=== PATIENT | male | born 1980 | race Caucasian/White ===

== ENCOUNTER 2017-04-06 21:08 | Emergency (ER) | payer BC, OTHER ==
[2017-04-06 21:21] VITALS: TEMP 98.6
[2017-04-06] MEDS ORDERED: NS 1,000 ML IV ONE (21:32)
[2017-04-06] MEDS ORDERED: HYDROmorphONE/DILAUDID 1 MG/ML SYR IVP ONE (21:32)
[2017-04-06] MEDS ORDERED: fentaNYL 100 MCG/2 ML INJ IVP ONE (21:34)
--- NOTE | 2017-04-06 22:15 | EDPHY ---
H & P Time Seen by Provider: 04/06/17 21:39 HPI/ROS: CHIEF COMPLAINT: Left wrist pain HISTORY OF PRESENT ILLNESS: 36-year-old [id number] male complaining of acute left wrist pain after he fell on outstretched left hand while skateboarding. Complaining deformity. No paresthesia or sensory deficit. Reproducible pain with palpation range of motion. Course shortly prior to arrival. PRIMARY CARE PROVIDER: REVIEW OF SYSTEMS: A ten point review of systems was performed and is negative with the exception of the items mentioned in the HPI PHYSICAL EXAM (Prior to examination, patient consented to physical exam, hands were washed and my usual and customary physical exam procedures followed) 1) GENERAL: Well-developed, well-nourished, alert and oriented. Appears to be in no acute distress. 2) HEAD: Normocephalic 3) HEENT: Pupils equal, round, reactive to light bilaterally. 4) LUNGS: Breathing comfortably. 5) MUSCULOSKELETAL: Soft compartments. Soft tissue swelling and dorsal deformity left wrist. Normal coloration. 6) SKIN: intact 7) VASCULAR: pulses and cap refill present are brisk 8) NEUROLOGIC: Radial, ulnar, median nerve function intact with no deficits appreciated on exam DIFFERENTIAL DIAGNOSIS: in no particular order including but not limited to fracture, sprain, compartment syndrome Procedure: Fracture reduction Indication: Fracture of the distal radius Indications, risks and benefits discussed with patient and consent obtained. A hematoma block of 0.5% bupivicaine placed by myself. Traction and countertraction applied achieving a visible and palpable reduction. The area was splinted with Ortho Glass sugar-tong splint . After application of the splint I returned and re-examined the patient. The splint was adequately immobilizing the joint and distal to the splint the patient's circulation and sensation were intact. Patient shows no signs of compartment syndrome. Was given orthopedic precautions. Smoking Status: Current every day smoker Constitutional: Initial Vital Signs Temperature (C) 37 C 04/06/17 21:18 Heart Rate 61 04/06/17 21:18 Respiratory Rate 20 04/06/17 21:18 Blood Pressure 145/80 H 04/06/17 21:18 O2 Sat (%) 96 04/06/17 21:18 O2 Delivery Mode Nasal Cannula O2 (L/minute) 1 Allergies/Adverse Reactions: No Known Allergies Allergy (Unverified 04/06/17 21:18) Home Medications: Medication Instructions Recorded Hydrocodone/APAP 5/325 [[place] 1 tab PO Q6 PRN #10 tab 04/06/17 5/325 (RX)] MDM/Departure - MDM Imaging Results: Imaging Impressions Wrist X-Ray 04/06/17 21:22 Impression: Displaced transverse distal left radial fracture, with dorsal subluxation of the carpus. Wrist X-Ray 04/06/17 22:51 Impression: Interval partial reduction in distal left radial displaced fracture and dorsal carpal subluxation. Images reviewed by myself Medications Given: Discontinued Medications Diphenhydramine HCl (Benadryl Injection) 25 mg IVP EDNOW ONE Stop: 04/06/17 21:59 Last Admin: 04/06/17 22:00 Dose: 25 mg Fentanyl (Sublimaze) 100 mcg IVP EDNOW ONE Stop: 04/06/17 21:35 Last Admin: 04/06/17 21:57 Dose: 100 mcg Hydromorphone HCl (Dilaudid) 1 mg IVP EDNOW ONE Stop: 04/06/17 21:33 Last Admin: 04/06/17 22:26 Dose: Not Given Sodium Chloride (Ns) 1,000 mls @ 0 mls/hr IV ONCE ONE PRN Reason: Wide Open Stop: 04/06/17 21:33 Last Admin: 04/06/17 21:58 Dose: 1,000 mls ED Course/Re-evaluation: 11:35 it p.m.: Phone consultation with Dr. Geoff Aranda orthopedics would like to see the patient in office on Tuesday (today is Tuesday). Patient was re-evaluated with serial examinations he remains with soft compartments neurovascularly intact. Given usual and customary orthopedic precautions and instructions - Depart Disposition: Home, Routine, Self-Care Clinical Impression: Fracture of left distal radius Qualifiers: Encounter type: initial encounter Fracture type: closed Fracture morphology: Colles' Qualified Code(s): S52.532A - Colles' fracture of left radius, initial encounter for closed fracture Condition: Good Instructions: Wrist Fracture in Adults (ED), Hydrocodone/Acetaminophen (By mouth) Additional Instructions: Return to the ER immediately if you experience discoloration, have worsening pain, numbness, tingling, or any other symptoms that concern you. If you received x-rays in the emergency department today, be advised, that ligamentous , tendon, muscular, and other non-bony injury cannot be fully ruled out. Try to keep your affected extremity elevated above the level of your chest, and keep cold packs on the affected area, for the next 48 hours. Prescriptions: Hydrocodone/APAP 5/325 [[place] 5/325 (RX)] 1 tab PO Q6 PRN #10 tab PRN Reason: Pain, Severe Referrals: Geoff Aranda MD [Medical Doctor] - 04/08/17
[2017-04-06 22:43] VITALS: RESP 16
[2017-04-07 00:23] VITALS: BP 125/74; PULSE 64; O2SAT 99
== END 2017-04-07 00:21 | disposition home or self-care (01) ==
PROC: 0PSJXZZ Reposition Left Radius, External Approach (ICD-10-PCS; principal; 2017-04-06)
DX: S52.532A Colles' fracture of left radius, initial encounter for closed fracture (principal); F17.200 Nicotine dependence, unspecified, uncomplicated; V00.131A Fall from skateboard, initial encounter; Y99.8 Other external cause status; Y93.51 Activity, roller skating (inline) and skateboarding
CPT/HCPCS: 96374; A4565; J1200; J3010